=== PATIENT | female | born 1955 | race Asian ===

== ENCOUNTER → 2020-06-11 13:11 | Outpatient (CLI) | payer OTHER, SELFPAY ==
[2020-06-11 14:56] LABS: COVID19 -Nasal RAPID Negative (Negative)
== END ==
PROVIDERS: Visit Provider Physician Assistant
DX: Z20.822 Contact with and (suspected) exposure to COVID-19 (principal)
CPT/HCPCS: 87635

== ENCOUNTER 2020-06-13 08:42 | Day surgery (SDC) | payer OTHER, SELFPAY ==
--- NOTE | 2020-06-13 10:35 | SUR.PREOP ---
Late entry: Pt reported liquid stool early in her arrival, then on further questioning she reported that she had solid stool still coming out. This reported to Dr. Robertson who cancelled her procedure. I informed the pt and told her the [facility] office will be in tough to reschedule.
== END 2020-06-13 08:45 | disposition home or self-care (01) ==
LOC: ENDO 08:44
PROVIDERS: Visit Provider Student in an Organized Health Care Education/Training Program

== ENCOUNTER → 2020-07-02 13:07 | Outpatient (CLI) | payer OTHER, SELFPAY ==
[2020-07-02 15:13] LABS: COVID19 -Nasal RAPID Negative (Negative)
== END ==
PROVIDERS: Visit Provider Physician Assistant
DX: Z01.812 Encounter for preprocedural laboratory examination (principal); Z20.822 Contact with and (suspected) exposure to COVID-19
CPT/HCPCS: 87635

== ENCOUNTER 2020-07-04 12:36 | Day surgery (SDC) | payer OTHER, SELFPAY ==
--- NOTE | 2020-07-04 | PATH_ITS ---
[facility] Accession Number: [id number] . 01 Material submitted: . PART A: colon - ASCENDING COLON POLYP PART B: colon - HEPATIC FLEXURE POLYP . 01 Clinical history: . SDC . 02 Diagnosis: A. Ascending Colon, Polyp, Biopsy: Food material only. No colonic tissue identified. . B. Hepatic Flexure, Polyp, Biopsy: Tubular adenoma. MRV 07/09/2020 1133 Local . 02 Electronically signed: . Jessi Plummer MD, Pathologist NPI- [id number] . 01 Gross description: . Part A: ASCENDING COLON POLYP: Received in formalin are 3 fragment(s) of solomon, soft tissue measuring 0.2 x 0.1 x 0.1 cm to 0.4 x 0.1 x 0.1 cm submitted entirely in 1 cassette(s) Part B: HEPATIC FLEXURE POLYP: Received in formalin are 2 fragment(s) of solomon, soft tissue measuring 0.2 x 0.2 x 0.2 cm to 0.5 x 0.3 x 0.3 cm submitted entirely in 1 cassette(s) /OLVIN 07/05/2020 1834 Local . 02 Pathologist provided ICD-10: D12.3 . 02 CPT . 155724, [id number] Performed at: 01 [facility] [address], [place], [place] [id number] MD Chris Amaral MD Phone: [phone] Performed at: 02 [facility] [address] , [place], [place] [id number] MD Jessi Plummer MD Phone: [phone]
[2020-07-04 13:12] VITALS: BP 181/88; PULSE 64; RESP 16; TEMP 36.2; O2SAT 100; BMI 36.3
[2020-07-04] MEDS: SODIUM CHLORIDE 0.9% 1,000 ML 70 ML IV ×2 (13:36→13:47)
--- NOTE | 2020-07-04 13:56 | PM.HP.1 ---
History of Present Illness History of Present Illness Date Patient Seen: 07/04/20 Time Patient Seen: 13:56 Chief complaint: SDC Narrative: Patient is a very pleasant 64-year-old female who presented for colonoscopy. She does have a personal history of constipation. He is overdue for screening colonoscopy. Patient History Family & Social History Social History: household members spouse Tobacco & Substance use: Smoking Status Never smoker alcohol intake never Substance Use Type does not use Meds Home Medications and Allergies Home Medications Medication Instructions Recorded Confirmed Type atorvastatin 40 mg PO DAILY 06/13/20 07/04/20 History lisinopril 40 mg PO DAILY 06/13/20 07/04/20 History melatonin 3 mg PO BEDTIME PRN 06/13/20 07/04/20 History metformin 500 mg PO BID 06/13/20 07/04/20 History Multiple Vitamin 1 tab PO DAILY 07/04/20 07/04/20 History Allergies Allergy/AdvReac Type Severity Reaction Status Date / Time No Known Drug Allergies Allergy Verified 06/13/20 09:02 Review of Systems Review of Systems ROS: Yes All systems reviewed with the patient and are negative except as otherwise documented Exam Vital Signs (past 8 hours): - 07/04/20 13:12 Temperature 97.2 F L Pulse Rate 64 Respiratory Rate 16 Blood Pressure 181/88 H Pulse Oximetry 100 Oxygen Delivery Method Room Air Const General: cooperative, healthy appearing, comfortable and well developed Nutritional Appearance: average body habitus Orientation: alert, awake and oriented x3 HENMT Head: normocephalic and atraumatic Resp Effort & Inspection: normal respiratory effort and able to speak in complete sentences Auscultation: clear to auscultation bilaterally Cardio Rate: regular rate Rhythm: regular rhythm Heart Sounds: S1 normal and S2 normal GI Palpation: soft Percussion: normal to percussion Auscultation: normal bowel sounds Extrem Right lower extremity: no edema Left lower extremity: no edema Assessment & Plan Assessment & Plan narrative: 1. Constipation 2. Average risk colon cancer screening Colonoscopy today, further recommendations to follow
[2020-07-04] MEDS: MIDAZOLAM 5 MG/5 ML VIAL IV (14:20)
[2020-07-04] MEDS: fentaNYL 250 MCG/5 ML INJ IV (14:20)
[2020-07-04 14:22] VITALS: BP 150/68; PULSE 65; RESP 12; TEMP 36.7; O2SAT 100
[2020-07-04 14:27] VITALS: BP 151/76; PULSE 65; RESP 12; O2SAT 99
--- NOTE | 2020-07-04 14:27 | PM.HP.1 ---
History of Present Illness History of Present Illness Chief complaint: [facility] Narrative: Patient is a very pleasant 64-year-old female who presented for colonoscopy. She does have a personal history of constipation. He is overdue for screening colonoscopy. Patient History Family & Social History Social History: household members spouse Tobacco & Substance use: Smoking Status Never smoker alcohol intake never Substance Use Type does not use Meds Home Medications and Allergies Home Medications Medication Instructions Recorded Confirmed Type atorvastatin 40 mg PO DAILY 06/13/20 07/04/20 History lisinopril 40 mg PO DAILY 06/13/20 07/04/20 History melatonin 3 mg PO BEDTIME PRN 06/13/20 07/04/20 History metformin 500 mg PO BID 06/13/20 07/04/20 History Multiple Vitamin 1 tab PO DAILY 07/04/20 07/04/20 History Allergies Allergy/AdvReac Type Severity Reaction Status Date / Time No Known Drug Allergies Allergy Verified 06/13/20 09:02 Exam Vital Signs (past 8 hours): - 07/04/20 13:12 Temperature 97.2 F L Pulse Rate 64 Respiratory Rate 16 Blood Pressure 181/88 H Pulse Oximetry 100 Oxygen Delivery Method Room Air
--- NOTE | 2020-07-04 14:27 | PM.OP.ENDO ---
Operative Date/Time/Diagnoses Date of procedure: 07/04/20 Time of procedure: 13:59 Procedure Notes Procedure in detail: Surgeon: Priscilla Robertson DO Procedure: Colonoscopy with polypectomy Preoperative diagnosis: 1. Constipation 2. Average risk colon cancer screening Postoperative diagnosis: 1. 4 mm polyp in the ascending colon 2. 5 mm polyp in the hepatic flexure 3. Grade 1 internal hemorrhoids noted on retroflexion 4. Normal appearing terminal ileum, remaining colon was unremarkable Medications: Conscious sedation using 3 mg IV of Midazolam and 75 mcg IV of Fentanyl Preanesthesia Assessment An H and P was performed/updated and the Px?s ASA class is 2. The procedure was discussed in detail with the patient. The potential risks and complications including infection, bleeding, missed lesions, perforation, need for surgery in case of perforation, prolonged hospital stay, and were explained. A brief question and answer period was allotted and once all questions were answered, informed consent was obtained. The patient was brought back to the procedure room and placed on standard monitoring. The patient?s vital signs were monitored continuously throughout the entire procedure. Prior to starting, a timeout was performed to confirm the patient?s identity, allergies, medications, and procedure. Procedure in detail The patient was placed in left lateral decubitus position and once adequate sedation was obtained a RAEGAN was performed. The digital rectal examination did not reveal any palpable lesions. The tip of the colonoscope was placed in the anal canal and advanced without difficulty all the way to the cecum which was identified by the appendiceal orifice and the ileocecal valve. Careful examination of all duncan of the colon was performed with irrigation of any residual stool. Colon was noted to be mildly tortuous. She was noted to have a 4 mm polyp in the ascending colon, removed with cold snare. A 5 mm polyp in the hepatic flexure removed with cold snare. The remaining colon mucosa in terminal ileum appeared unremarkable. Grade 1 internal hemorrhoids were noted on retroflexion. The patient tolerated the procedure well and will be brought back to the recovery area to be discharged once criteria are met. The prep was judged to be good/excellent and adequate to identify polyps less than 5 mm. The withdrawal time was 8min. The total physician intraservice time was 18min. Complications There were no complications and estimated blood loss was minimal. Recommendations: Resume previous diet Continue outPx medications Follow up pathology results Repeat colonoscopy will be determined after pathology results are reviewed An emergency contact number was given to the patient for any complications related to the procedure
[2020-07-04 14:32] VITALS: BP 155/74; PULSE 68; RESP 12; O2SAT 100
[2020-07-04 14:37] VITALS: BP 145/68; PULSE 68; RESP 14; TEMP 37.2; O2SAT 100
[2020-07-04 14:42] VITALS: BP 139/72; PULSE 64; RESP 14; TEMP 37.2; O2SAT 100
--- NOTE | 2020-07-04 15:10 | SUR.PHASEII ---
Pt has met discharge criteria: VSS, denied pain or nausea, able to drink fluids without difficulty. Discharge instructions discussed with pt, all questions answered. Transported via W\C to private vehicle.
== END 2020-07-04 15:05 | disposition home or self-care (01) ==
PROVIDERS: Referring Provider Student in an Organized Health Care Education/Training Program; Visit Provider Student in an Organized Health Care Education/Training Program
PROC: 0DJD8ZZ Inspection of Lower Intestinal Tract, Via Natural or Artificial Opening Endoscopic (ICD-10-PCS; CPT 45378; principal; 2020-07-04 14:00)
DX: Z12.11 Encounter for screening for malignant neoplasm of colon (principal); K64.0 First degree hemorrhoids; D12.3 Benign neoplasm of transverse colon
CPT/HCPCS: 45385; J2250; J3010

== ENCOUNTER → 2022-05-05 13:28 | Outpatient (CLI) | payer MEDICARE, OTHER, SELFPAY ==
[2022-05-05 14:17] LABS: Hematocrit 30.1 % (36-46); Hemoglobin 10.3 g/dL (12.0-16.0); Mean Corpuscular HGB Conc 34.2 % (30-36); Mean Corpuscular Hemoglobin 30.1 PG (26-34); Platelet Count 185 X10^3/uL (150-400); Red Blood Cell Count 3.42 X10^6/uL (4.0-5.2); Red Cell Distribution Width 14.9 % (11.6-14.8); White Blood Cell Count 5.4 X10^3/uL (4.5-11.0)
[2022-05-05 14:29] LABS: Hemoglobin A1C% w Est Avg Glu 6.5 % (4.0-6.0)
[2022-05-05 15:05] LABS: TSH w/ Reflex to FT4 1.01 uIU/mL (0.47-4.68)
[2022-05-05 15:56] LABS: Creatinine Urine Random 103.1 mg/dL
[2022-05-05 16:02] LABS: Microalbumi Creatinin Ratio Ur 37.8 ug/mg CR (<30); Microalbumin Urine Random 3.9 mg/dL (0-1.6)
[2022-05-05 16:11] LABS: Alanine Aminotransferase 37 IU/L (<35); Albumin Globulin Ratio 0.9 (1.0-2.8); Alkaline Phosphatase 80 U/L (38-126); Aspartate Aminotransferase 41 IU/L (14-36); BUN Creatinine Ratio 15.3 (6-22); Bilirubin Total 0.5 mg/dL (0.2-1.3); Blood Urea Nitrogen 15 mg/dL (7-17); Calcium 9.1 mg/dL (8.4-10.2); Carbon Dioxide 25 mmol/L (22-32); Chloride 102 mmol/L (98-107); Estimated Glomerular Filt Rate > 60 mL/min (>60); Globulin 4.3 g/dL (1.7-4.1); Glucose 187 mg/dL (80-110); HEMOLYSIS < 15 (0-50); Potassium 3.6 mmol/L (3.4-5.1); Sodium 138 mmol/L (137-145); Total Protein 8.3 g/dL (6.3-8.2)
[2022-05-06 02:40] LABS: Cholesterol 152 mg/dL (140-199); HDL Cholesterol 49 mg/dL (40-60); LDL Cholesterol Calculated 76 mg/dL (<100); Triglycerides 135 mg/dL (35-150)
[2022-05-07 14:18] LABS: HEMOLYSIS < 15 (0-50); Iron 85 ug/dL (37-170)
[2022-05-07 14:33] LABS: Percent Iron Saturation 33 % (15-50); Total Iron Binding Capacity 255 ug/dL (265-497); Transferrin 199 mg/dL (206-381)
[2022-05-07 15:02] LABS: Ferritin 155 ng/mL (11-264)
== END ==
PROVIDERS: PCP Internal Medicine; Referring Provider Internal Medicine; Visit Provider Internal Medicine
DX: E11.69 Type 2 diabetes mellitus with other specified complication (principal); E78.5 Hyperlipidemia, unspecified; E78.2 Mixed hyperlipidemia; I10 Essential (primary) hypertension; D64.9 Anemia, unspecified
CPT/HCPCS: 36415; 80053; 80061; 82043; 82570; 82728; 83036; 83540; 83550; 84443; 85027

== ENCOUNTER → 2022-06-11 10:58 | Outpatient (CLI) | payer MEDICARE, OTHER, SELFPAY ==
[2022-06-11 12:13] LABS: Hematocrit 31.4 % (36-46); Hemoglobin 10.4 g/dL (12.0-16.0); Mean Corpuscular HGB Conc 33.1 % (30-36); Mean Corpuscular Hemoglobin 30.1 PG (26-34); Mean Corpuscular Volume 90.9 fL (80-100); Platelet Count 248 X10^3/uL (150-400); Red Blood Cell Count 3.46 X10^6/uL (4.0-5.2); Red Cell Distribution Width 14.6 % (11.6-14.8); White Blood Cell Count 5.4 X10^3/uL (4.5-11.0)
[2022-06-11 12:36] LABS: BUN Creatinine Ratio 15.5 (6-22); Blood Urea Nitrogen 15 mg/dL (7-17); Calcium 9.7 mg/dL (8.4-10.2); Carbon Dioxide 27 mmol/L (22-32); Chloride 104 mmol/L (98-107); Estimated Glomerular Filt Rate > 60 mL/min (>60); Glucose 106 mg/dL (80-110); HEMOLYSIS < 15 (0-50); Potassium 4.1 mmol/L (3.4-5.1); Sodium 141 mmol/L (137-145)
[2022-06-11 13:24] LABS: Vitamin B12 811 pg/mL (239-931)
[2022-06-12 07:11] LABS: HBsAg Screen Negative (Negative); Hepatitis A Antibody IgM Negative (Negative); Hepatitis B Core Antibody IgM Negative (Negative); Hepatitis C Antibody 0.1 s/co ratio (0.0-0.9)
== END ==
PROVIDERS: PCP Internal Medicine; Referring Provider Internal Medicine; Visit Provider Internal Medicine
DX: R55 Syncope and collapse (principal); Z20.9 Contact with and (suspected) exposure to unspecified communicable disease; D64.9 Anemia, unspecified
CPT/HCPCS: 36415; 80048; 80074; 82607; 85027; 93005

== ENCOUNTER → 2022-06-23 14:12 | Outpatient (CLI) | payer MEDICARE, OTHER, SELFPAY | PROVIDERS: PCP Internal Medicine; Referring Provider Internal Medicine; Visit Provider Internal Medicine | DX: Z78.0 Asymptomatic menopausal state (principal); M85.89 Other specified disorders of bone density and structure, multiple sites | CPT/HCPCS: 77080 ==

== ENCOUNTER → 2022-10-13 13:35 | Outpatient (CLI) | payer MEDICARE, OTHER, SELFPAY ==
[2022-10-13 14:34] LABS: Hematocrit 33.4 % (36-46); Hemoglobin 11.2 g/dL (12.0-16.0); Mean Corpuscular HGB Conc 33.6 % (30-36); Mean Corpuscular Hemoglobin 31.1 PG (26-34); Mean Corpuscular Volume 92.6 fL (80-100); Platelet Count 251 X10^3/uL (150-400); Red Cell Distribution Width 14.1 % (11.6-14.8); White Blood Cell Count 5.8 X10^3/uL (4.5-11.0)
[2022-10-13 15:11] LABS: Alanine Aminotransferase 35 IU/L (<35); Albumin 4.3 g/dL (3.5-5.0); Albumin Globulin Ratio 1.1 (1.0-2.8); Alkaline Phosphatase 80 U/L (38-126); Aspartate Aminotransferase 29 IU/L (14-36); BUN Creatinine Ratio 15.3 (6-22); Bilirubin Total 0.6 mg/dL (0.2-1.3); Blood Urea Nitrogen 20 mg/dL (7-17); Calcium 9.7 mg/dL (8.4-10.2); Carbon Dioxide 28 mmol/L (22-32); Chloride 103 mmol/L (98-107); Estimated Glomerular Filt Rate 45 mL/min (>60); Globulin 3.8 g/dL (1.7-4.1); Glucose 155 mg/dL (80-110); HEMOLYSIS < 15 (0-50); Potassium 4.1 mmol/L (3.4-5.1); Sodium 140 mmol/L (137-145); Total Protein 8.1 g/dL (6.3-8.2)
[2022-10-14 03:10] LABS: x Labcorp Estim. Avg Glu (eAG) 143 mg/dL (.); x Labcorp Hemoglobin A1c 6.6 % (4.8-5.6)
== END ==
PROVIDERS: PCP Internal Medicine; Referring Provider Internal Medicine; Visit Provider Internal Medicine
DX: D64.9 Anemia, unspecified (principal); R55 Syncope and collapse
CPT/HCPCS: 36415; 80053; 83036; 85027

== ENCOUNTER 2023-05-03 13:32 | Emergency (ER) | payer MEDICARE, OTHER, SELFPAY ==
[2023-05-03] VITALS (11 sets, daily range): BP systolic 97–130; BP diastolic 50–60; PULSE 56–74; RESP 13–20; TEMP 36.2; O2SAT 93–100; BMI 25.2
--- NOTE | 2023-05-03 13:55 | DI.RAD.S_ITS ---
PROCEDURE: XR CHEST 1V INDICATIONS: chest pain TECHNIQUE: One view of the chest was acquired. COMPARISON: None. FINDINGS: Surgical changes and devices: None. Lungs and pleura: Lungs are clear. No pleural effusions or pneumothorax. Mediastinum: Mediastinal contours appear normal. Heart size is normal. Bones and chest wall: No suspicious bony lesions. Overlying soft tissues appear unremarkable. IMPRESSION: No acute cardiopulmonary abnormality is seen. Dictated by: González Murray M.D. on 05/03/2023 at 13:18 Approved by: González Murray M.D. on 05/03/2023 at 13:23
[2023-05-03 14:11] LABS: Prothrombin Time 11.6 SECONDS (9.4-12.5)
[2023-05-03 14:14] LABS: PTT Partial Thromboplastin Tim 27 SECONDS (25.1-36.5)
[2023-05-03 14:15] LABS: Add Manual Diff / Slide Review NO; Basophils Absolute Auto 0 /uL (0-100); Basophils Percent Auto 0.5 % (0-2); Eosinophils Absolute Auto 100 /uL (0-450); Eosinophils Percent Auto 2.3 % (2-4); Hematocrit 27.4 % (36-46); Hemoglobin 9.5 g/dL (12.0-16.0); Lymphocytes Absolute Auto 1800 /uL (1100-4500); Lymphocytes Percent Auto 30.8 % (25-40); Mean Corpuscular HGB Conc 34.9 % (30-36); Mean Corpuscular Hemoglobin 31.7 PG (26-34); Mean Corpuscular Volume 90.9 fL (80-100); Monocytes Absolute Auto 400 /uL (0-900); Monocytes Percent Auto 7.3 % (3-14); Neutrophils Absolute Auto 3400 /uL (1500-7000); Neutrophils Percent Auto 59.1 % (50-75); Platelet Count 249 X10^3/uL (150-400); Red Blood Cell Count 3.01 X10^6/uL (4.0-5.2); White Blood Cell Count 5.7 X10^3/uL (4.5-11.0)
[2023-05-03] MEDS: SODIUM CHLORIDE 0.9% 1,000 ML 1000 ML IV (14:19)
[2023-05-03 14:24] LABS: Alanine Aminotransferase 29 IU/L (<35); Albumin 3.4 g/dL (3.5-5.0); Alkaline Phosphatase 74 U/L (38-126); Aspartate Aminotransferase 34 IU/L (14-36); BUN Creatinine Ratio 13.7 (6-22); Bilirubin Total 0.6 mg/dL (0.2-1.3); Blood Urea Nitrogen 14 mg/dL (7-17); Carbon Dioxide 25 mmol/L (22-32); Chloride 106 mmol/L (98-107); Creatine Kinase 25 U/L (30-135); Estimated Glomerular Filt Rate > 60 mL/min (>60); Globulin 3.3 g/dL (1.7-4.1); Glucose 155 mg/dL (80-110); HEMOLYSIS 20 (0-50); Lipase 93 U/L (23-300); Magnesium 1.6 mg/dL (1.6-2.3); Potassium 3.8 mmol/L (3.4-5.1); Sodium 134 mmol/L (137-145); Total Protein 6.7 g/dL (6.3-8.2)
--- NOTE | 2023-05-03 14:31 | ED_ITS ---
HPI - Syncope General Chief Complaint: Weakness Stated Complaint: Syncope/weakness Time Seen by Provider: 05/03/23 14:11 Source: patient and EMS Mode of arrival: EMS Limitations: no limitations History of Present Illness HPI narrative: This is a 67-year-old female with history of hypertension, dyslipidemia diabetes who presents with complaint of syncope or near syncopal episode today. Has been states had recently gotten up had walked into the kitchen she said she does not feel well and she could not see right and that her vision was turning black. States he held her up she got very sweaty he helped her down to the ground. He states he never lost consciousness but seemed woozy. After about 10 minute she seemed improved they stood her back up and she would some her symptoms again and sat her back in his chair. Patient never had loss of consciousness no difficulty with speech no numbness, tingling weakness or facial droop. Patient has been both notes she has not had anything to eat since last night. She has had prior syncopal episodes in the past. None recently. No fevers or chills. No chest pain, no shortness of breath. She has not had any nausea or vomiting. She is been mildly constipated but had a bowel movement yesterday. No black or bloody stools. No dysuria urgency or frequency. No urinary incontinence. No new swelling of extremities. Patient he is on lisinopril, amlodipine, 80 mg atorvastatin, metformin. Had prior cholecystectomy remotely. No known drug allergies. No tobacco, alcohol or illicit. Primary care is Dr. Melendez. Patient has been feeling improved here in the department but has not been upper walking. She has not yet had anything to eat today. Related Data Home Medications Medication Instructions Recorded Confirmed melatonin 3 mg tablet 3 mg PO BEDTIME PRN Sleep 06/13/20 10/15/22 multivitamin 1 tab PO DAILY 11/27/21 10/15/22 Previous Rx's Medication Instructions Recorded blood sugar diagnostic (FreeStyle #100 ea 11/28/21 Lite Strips) lancets 28 gauge (FreeStyle #100 ea 11/28/21 Lancets) amlodipine 10 mg tablet 10 mg PO DAILY #90 tabs 10/15/22 atorvastatin 80 mg tablet 80 mg PO DAILY #90 tabs 10/15/22 lisinopril 40 mg tablet 40 mg PO DAILY #90 tabs 10/15/22 metformin 500 mg tablet 500 mg PO BID #180 tabs 10/15/22 Allergies Allergy/AdvReac Type Severity Reaction Status Date / Time No Known Drug Allergies Allergy Verified 10/15/22 10:21 Review of Systems Review of Systems ROS Unobtainable: All systems reviewed & are unremarkable except as noted in HPI and below Patient History Medical History Slow transit constipation Osteopenia Anemia Syncope Iliotibial band syndrome of both sides Cervicalgia History of colonic polyps Mixed hyperlipidemia Essential hypertension DM type 2 with diabetic dyslipidemia Social History household members: spouse Smoking Status: Never smoker alcohol intake: never Smoking Status: Never smoker Substance Use Type: does not use Exam Narrative Exam Narrative: GENERAL: Alert and oriented x three, well-appearing elderly female in mild distress. HEENT: Head normocephalic, atraumatic, EOMI, pupils reactive, face symmetric, moist mucous membranes NECK: Supple, full range of motion CARDIOVASCULAR: Regular rate and rhythm without murmurs, rubs or gallops. No JVD. No edema bilateral lower extremities. RESPIRATORY: Breath sounds equal bilaterally, no wheezes rales or rhonchi. No tachypnea or accessory muscle use ABDOMEN: Soft, nontender. Normoactive bowel sounds all 4 quadrants. No guarding or rebound, rigidity, no mass : No CVA tenderness EXTREMITIES: Normal range of motion, no clubbing or edema. Neurovascularly intact NEUROLOGICAL: Cranial nerves II through XII grossly intact. Moving all extremities SKIN: Warm, dry, no petechiae, no rashes or lesions. Initial Vital Signs Initial Vital Signs: Vital Signs Pulse Rate 62 05/03/23 13:35 Pulse Oximetry 93 05/03/23 13:35 Course Orders Ordered: Discontinued Medications Sodium Chloride (Normal Saline 0.9%) 1,000 mls @ 1,000 mls/hr IV BOLUS ONE Stop: 05/03/23 15:11 Last Infusion: 05/03/23 15:14 Dose: Infused Documented By: Admin: 05/03/23 14:19 Dose: 1,000 mls/hr Documented By: KAMAR Vital Signs Vital signs: Vital Signs - 8 hr 05/03/23 13:35 05/03/23 13:38 05/03/23 13:38 Temperature Pulse Rate 62 65 Respiratory Rate Blood Pressure 97/53 L Pulse Oximetry 93 98 Oxygen Delivery Method 05/03/23 13:40 05/03/23 13:41 05/03/23 13:41 Temperature 97.1 F L Pulse Rate 62 61 Respiratory Rate 18 Blood Pressure 97/53 L 107/57 L Pulse Oximetry 99 99 Oxygen Delivery Method Room Air 05/03/23 13:51 05/03/23 13:51 05/03/23 14:00 Temperature Pulse Rate 65 Respiratory Rate 20 Blood Pressure 130/58 L 112/57 L Pulse Oximetry 96 Oxygen Delivery Method 05/03/23 14:00 05/03/23 14:10 05/03/23 14:10 Temperature Pulse Rate 57 L 56 L Respiratory Rate 13 17 Blood Pressure 113/58 L Pulse Oximetry 100 100 Oxygen Delivery Method Room Air 05/03/23 14:20 05/03/23 14:20 05/03/23 14:30 Temperature Pulse Rate 59 L 63 Respiratory Rate 14 17 Blood Pressure 101/50 L Pulse Oximetry 98 99 Oxygen Delivery Method Room Air 05/03/23 14:30 Temperature Pulse Rate Respiratory Rate Blood Pressure 115/56 L Pulse Oximetry Oxygen Delivery Method MDM - Syncope Lab Data 05/03/23 13:44 05/03/23 13:44 Labs: Lab Results 05/03/23 Range/Units 13:44 WBC 5.7 (4.5-11.0) X10^3/uL RBC 3.01 L (4.0-5.2) X10^6/uL Hgb 9.5 L (12.0-16.0) g/dL Hct 27.4 L (36-46) % MCV 90.9 (80-100) fL MCH 31.7 (26-34) PG MCHC 34.9 (30-36) % RDW 13.0 (11.6-14.8) % Plt Count 249 (150-400) X10^3/uL Neut % (Auto) 59.1 (50-75) % Lymph % (Auto) 30.8 (25-40) % [place] % (Auto) 7.3 (3-14) % Eos % (Auto) 2.3 (2-4) % Baso % (Auto) 0.5 (0-2) % Neut # (Auto) 3400 (7220-6686) /uL Lymph # (Auto) 1800 (1458-3198) /uL [place] # (Auto) 400 (0-900) /uL Eos # (Auto) 100 (0-450) /uL Baso # (Auto) 0 (0-100) /uL PT 11.6 (9.4-12.5) SECONDS INR 1.0 (0.9-1.3) APTT 27 (25.1-36.5) SECONDS Sodium 134 L (137-145) mmol/L Potassium 3.8 (3.4-5.1) mmol/L Chloride 106 (98-107) mmol/L Carbon Dioxide 25 (22-32) mmol/L BUN 14 (7-17) mg/dL Creatinine 1.02 (0.52-1.04) mg/dL Estimated GFR > 60 (>60) mL/min BUN/Creatinine Ratio 13.7 (6-22) Glucose 155 H (80-110) mg/dL Calcium 9.0 (8.4-10.2) mg/dL Magnesium 1.6 (1.6-2.3) mg/dL Total Bilirubin 0.6 (0.2-1.3) mg/dL AST 34 (14-36) IU/L ALT 29 (<35) IU/L Alkaline Phosphatase 74 (38-126) U/L Total Creatine Kinase 25 L (30-135) U/L Troponin I < 0.012 (0.01-0.034) ng/mL Total Protein 6.7 (6.3-8.2) g/dL Albumin 3.4 L (3.5-5.0) g/dL Globulin 3.3 (1.7-4.1) g/dL Albumin/Globulin Ratio 1.0 (1.0-2.8) Lipase 93 (23-300) U/L Imaging Data Chest x-ray: Radiologist's Impression: Anuja Arnold??67??F??1955 ? Allergy/Adv: No Known Drug Allergies (More??) Close Chest X-Ray (Signed) González Murray - 05/03/23 DEXA Result 06/23/22 Bone Densitometry 06/23/22 Telemetry Strips 07/04/20 Launch?[address] [address] XRay Report Signed Patient: Anuja Arnold MR#: [id number] : 1955 Acct:[id number] Age/Sex: 67 / F Date of Service: 05/03/23 Loc: ED Accession Number: [id number] Procedure: XR chest 1V Ordering Provider: Irish Vallejo D.O. PROCEDURE: XR CHEST 1V INDICATIONS: chest pain TECHNIQUE: One view of the chest was acquired. COMPARISON: None. FINDINGS: Surgical changes and devices: None. Lungs and pleura: Lungs are clear. No pleural effusions or pneumothorax. Mediastinum: Mediastinal contours appear normal. Heart size is normal. Bones and chest wall: No suspicious bony lesions. Overlying soft tissues appear unremarkable. IMPRESSION: No acute cardiopulmonary abnormality is seen. Dictated by: González Murray M.D. on 05/03/2023 at 13:18 Approved by: González Murray M.D. on 05/03/2023 at 13:23 ECG Data Attestation: I personally reviewed and interpreted this ECG as follows: Prior ECG tracings: available for review Interpretation: Sinus rhythm with sinus arrhythmia, rate of 61 NE 158, QRS is 78 QTC of 448. Patient does not appear to have more of a sinus arrhythmia. No AV block appreciated. No acute ST changes noted patient has prior for comparison with no change. MDM Narrative Medical decision making narrative: 67-year-old female with complaint of near-syncope, patient had 2 episodes almost back to back. Patient has had similar episodes in the past she would not eaten or drank anything so far today. Patient is hypotensive initially on arrival and has been had tried to check her blood pressure but was too low he did give her some candy for possible hypoglycemia. Patient's workup CBC shows hemoglobin 9.5 was 11 on 10/13/2021 has been in the 10 range. Crit is 27. White count 5.7 platelets are 249, creatinine is 1.012 was 1.31 on 10/13 normal glucose of 155 BUN 14 sodium and potassium are appropriate 134 and 3.8 LFTs are negative CK is 25 with a negative troponin. Chest x-ray shows no acute change. EKG has some sinus arrhythmia but no obvious AV block or ST changes appears similar to prior. Patient was hypotensive initially blood pressures improved with fluids. Patient had not eaten anything today although blood glucose was appropriate patient did have some food and water to drink. Patient had ambulation trial with no issue. Patient is felt safe for disposition home. Discharge Plan Departure Patient Disposition: Home Clinical Impression: Near syncope Instructions: DI for Syncope in Adults (Fainting) Activity Restrictions/Additional Instructions: Follow-up with your physician for recheck. Please call to set up an appointment. Monitor your blood pressure at home. If your blood pressure is running low chronically they may need to decrease your blood pressure medication. Make sure you are eating and drinking regularly. Please return for new or worsening symptoms, severe headaches, new chest pain, shortness of breath, read recurrent episodes of passing out or lightheadedness, sweatiness, nausea or vomiting, black or bloody stools, urinary incontinence, new swelling in extremities or other new or concerning changes. Prescriptions: No Action (DME) lancets [FreeStyle Lancets] 28 gauge misc See Rx Instructions .Route Qty: 100 3RF Rx Instructions: As directed;1 lancet to check blood glucose daily (DME) FreeStyle Lite Strips Strip See Rx Instructions .Route Qty: 100 3RF Rx Instructions: As directed;1 test strip to check blood glucose daily multivitamin Tablet 1 tab PO DAILY metformin 500 mg tablet 500 mg PO BID Qty: 180 3RF lisinopril 40 mg tablet 40 mg PO DAILY Qty: 90 3RF atorvastatin 80 mg tablet 80 mg PO DAILY Qty: 90 3RF amlodipine 10 mg tablet 10 mg PO DAILY Qty: 90 3RF melatonin 3 mg Tablet 3 mg PO BEDTIME PRN (Reason: Sleep) Referrals: Ricky Melendez MD [Primary Care Provider] - Stand Alone Forms: Patient Portal/API
[2023-05-03 14:35] LABS: Troponin I < 0.012 ng/mL (0.01-0.034)
--- NOTE | 2023-05-03 15:16 | PC.NURSE ---
CELLAR WORKER note: provider requested pt. have a snack or warm water and then ambulation trial. pt. refused snack options that were provided, but accepted warm water to drink. I left crackers, applesauce and warm water at pt. bedside table, i offered broth as another option as pt. requested hot food. this robotics engineer informed pt. that dinner service does not start until 1700. ISMAEL Valdez notified, then i called inpatient orders and left a vm.
--- NOTE | 2023-05-03 15:26 | PC.NURSE ---
This CHARGE MACHINE OPERATOR performed ambulation trial with pt. pt walked from bed and down outside of room with myself walking beside before returning to the room and bed.
== END 2023-05-03 15:50 | disposition home or self-care (01) ==
PROVIDERS: Emergency Provider Emergency Medicine; PCP Internal Medicine
DX: R55 Syncope and collapse (principal)
CPT/HCPCS: 36415; 71045; 80053; 82550; 83690; 83735; 84484; 85025; 85610; 85730; 93005; 93010; 99284

== ENCOUNTER → 2023-06-15 15:00 | Outpatient (CLI) | payer MEDICARE, OTHER, SELFPAY ==
[2023-06-15 17:16] LABS: Hematocrit 32.4 % (36-46); Hemoglobin 11.1 g/dL (12.0-16.0); Mean Corpuscular HGB Conc 34.2 % (30-36); Mean Corpuscular Hemoglobin 31.1 PG (26-34); Mean Corpuscular Volume 90.8 fL (80-100); Platelet Count 229 X10^3/uL (150-400); Red Blood Cell Count 3.57 X10^6/uL (4.0-5.2); Red Cell Distribution Width 14.2 % (11.6-14.8); White Blood Cell Count 4.9 X10^3/uL (4.5-11.0)
[2023-06-15 17:32] LABS: BUN Creatinine Ratio 11.6 (6-22); Blood Urea Nitrogen 13 mg/dL (7-17); Carbon Dioxide 26 mmol/L (22-32); Chloride 102 mmol/L (98-107); Cholesterol 137 mg/dL (140-199); Estimated Glomerular Filt Rate 54 mL/min (>60); Glucose 130 mg/dL (80-110); HDL Cholesterol 56 mg/dL (40-60); HEMOLYSIS < 15 (0-50); LDL Cholesterol Calculated 61 mg/dL (<100); Potassium 3.9 mmol/L (3.4-5.1); Sodium 136 mmol/L (137-145); Triglycerides 101 mg/dL (35-150)
[2023-06-15 18:06] LABS: Ferritin 37 ng/mL (11-264)
[2023-06-15 19:49] LABS: Creatinine Urine Random 211.5 mg/dL
[2023-06-15 19:53] LABS: Microalbumin Urine Random 7.2 mg/dL (0-1.6)
[2023-06-15 23:10] LABS: HEMOLYSIS < 15 (0-50); Transferrin 232 mg/dL (206-381)
[2023-06-15 23:21] LABS: Iron 92 ug/dL (37-170)
[2023-06-15 23:32] LABS: Percent Iron Saturation 34 % (15-50); Total Iron Binding Capacity 273 ug/dL (265-497)
[2023-06-16 11:10] LABS: Hemoglobin A1C% w Est Avg Glu 6.3 % (4.0-6.0)
== END ==
PROVIDERS: PCP Internal Medicine; Referring Provider Internal Medicine; Visit Provider Internal Medicine
DX: E11.69 Type 2 diabetes mellitus with other specified complication (principal); D64.9 Anemia, unspecified; I10 Essential (primary) hypertension; E78.5 Hyperlipidemia, unspecified; E78.2 Mixed hyperlipidemia
CPT/HCPCS: 36415; 80048; 80061; 82043; 82570; 82728; 83036; 83540; 83550; 85027

== ENCOUNTER → 2023-09-07 14:57 | Outpatient (CLI) | payer MEDICARE, OTHER, SELFPAY ==
--- NOTE | 2023-09-07 | DI.MG.S_ITS ---
BILATERAL DIGITAL SCREENING MAMMOGRAM 3D/2D WITH CAD: 09/07/2023 CLINICAL: Routine screening. Comparison is made to exam dated: 05/16/2020 mammogram - [facility]. Both breasts are heterogeneously dense, which may obscure small masses (category c / 51-75% glandular tissue). Current study was also evaluated with a Computer Aided Detection (CAD) system. No significant masses, calcifications, or other findings are seen in either breast. There has been no significant interval change. IMPRESSION: NEGATIVE There is no mammographic evidence of malignancy. A 1 year screening mammogram is recommended. Based on the Tyrer Cuzick model (a risk assessment model) the patient's lifetime risk is 9.3% and her 10 year risk is 4.7%. According to the ACR, ACS, and NCCN guidelines, an annual breast MRI exam along with mammogram is recommended if the patient's lifetime risk is 20% or greater. This exam was interpreted at Station ID: [id number]. NOTE: For mammograms, a report in lay terms will be sent to the patient. Approximately 15% of breast malignancies will not be visualized mammographically. In the management of a palpable breast mass, a negative mammogram must not discourage biopsy of a clinically suspicious lesion. Electronically Signed By: Felicia leahy/rosa m:09/08/2023 14:07:53 letter sent: Normal Exam ACR BI-RADS Category 1: Negative 3341F
[2023-09-07 15:39] LABS: Add Manual Diff / Slide Review NO; Basophils Absolute Auto 0 /uL (0-100); Basophils Percent Auto 0.8 % (0-2); Eosinophils Absolute Auto 100 /uL (0-450); Eosinophils Percent Auto 1.5 % (2-4); Hemoglobin 11.3 g/dL (12.0-16.0); Lymphocytes Absolute Auto 2000 /uL (1100-4500); Lymphocytes Percent Auto 39.6 % (25-40); Mean Corpuscular HGB Conc 34.1 % (30-36); Mean Corpuscular Hemoglobin 31.5 PG (26-34); Mean Corpuscular Volume 92.4 fL (80-100); Monocytes Absolute Auto 300 /uL (0-900); Monocytes Percent Auto 6.2 % (3-14); Neutrophils Absolute Auto 2700 /uL (1500-7000); Neutrophils Percent Auto 51.9 % (50-75); Platelet Count 227 X10^3/uL (150-400); Red Blood Cell Count 3.58 X10^6/uL (4.0-5.2); Red Cell Distribution Width 13.5 % (11.6-14.8); White Blood Cell Count 5.2 X10^3/uL (4.5-11.0)
[2023-09-07 15:58] LABS: HEMOLYSIS < 15 (0-50); Iron 73 ug/dL (37-170)
[2023-09-07 16:11] LABS: Percent Iron Saturation 30 % (15-50); Total Iron Binding Capacity 247 ug/dL (265-497); Transferrin 200 mg/dL (206-381)
[2023-09-07 16:36] LABS: Ferritin 48 ng/mL (11-264)
== END ==
PROVIDERS: PCP Internal Medicine; Referring Provider Internal Medicine; Visit Provider Internal Medicine
DX: Z12.31 Encounter for screening mammogram for malignant neoplasm of breast (principal); D64.9 Anemia, unspecified; R92.333 Mammographic heterogeneous density, bilateral breasts
CPT/HCPCS: 36415; 77063; 77067; 82728; 83540; 83550; 85025

== ENCOUNTER → 2023-11-23 14:29 | Outpatient (CLI) | payer MEDICARE, OTHER, SELFPAY ==
[2023-11-23 14:59] LABS: Hematocrit 31.7 % (36-46); Hemoglobin 10.8 g/dL (12.0-16.0); Mean Corpuscular HGB Conc 34.1 % (30-36); Mean Corpuscular Hemoglobin 31.5 PG (26-34); Mean Corpuscular Volume 92.5 fL (80-100); Platelet Count 220 X10^3/uL (150-400); Red Blood Cell Count 3.42 X10^6/uL (4.0-5.2); Red Cell Distribution Width 14.2 % (11.6-14.8); White Blood Cell Count 4.7 X10^3/uL (4.5-11.0)
[2023-11-23 15:05] LABS: Hemoglobin A1C% w Est Avg Glu 6.2 % (4.0-6.0)
[2023-11-23 15:32] LABS: Alanine Aminotransferase 28 IU/L (<35); Albumin 3.9 g/dL (3.5-5.0); Albumin Globulin Ratio 1.1 (1.0-2.8); Alkaline Phosphatase 82 U/L (38-126); Aspartate Aminotransferase 29 IU/L (14-36); BUN Creatinine Ratio 13.9 (6-22); Bilirubin Total 0.4 mg/dL (0.2-1.3); Blood Urea Nitrogen 15 mg/dL (7-17); Calcium 9.6 mg/dL (8.4-10.2); Carbon Dioxide 27 mmol/L (22-32); Chloride 108 mmol/L (98-107); Cholesterol 177 mg/dL (140-199); Estimated Glomerular Filt Rate 56 mL/min (>60); Globulin 3.4 g/dL (1.7-4.1); Glucose 124 mg/dL (80-110); HDL Cholesterol 74 mg/dL (40-60); HEMOLYSIS < 15 (0-50); Iron 66 ug/dL (37-170); LDL Cholesterol Calculated 77 mg/dL (<100); Potassium 3.7 mmol/L (3.4-5.1); Sodium 141 mmol/L (137-145); Total Protein 7.3 g/dL (6.3-8.2); Triglycerides 130 mg/dL (35-150)
[2023-11-23 15:41] LABS: Percent Iron Saturation 25 % (15-50); Total Iron Binding Capacity 264 ug/dL (265-497)
[2023-11-23 15:42] LABS: Transferrin 211 mg/dL (206-381)
[2023-11-23 16:05] LABS: TSH w/ Reflex to FT4 0.65 uIU/mL (0.47-4.68)
[2023-11-23 16:10] LABS: Ferritin 29 ng/mL (11-264)
[2023-11-23 16:33] LABS: Creatinine Urine Random 168.17 mg/dL
[2023-11-23 16:38] LABS: Microalbumin Urine Random 5.9 mg/dL (0-1.6)
== END ==
LOC: LAB 14:31
PROVIDERS: PCP Internal Medicine; Referring Provider Internal Medicine; Visit Provider Internal Medicine
DX: R55 Syncope and collapse (principal); E11.69 Type 2 diabetes mellitus with other specified complication; E78.5 Hyperlipidemia, unspecified; D64.9 Anemia, unspecified
CPT/HCPCS: 36415; 80053; 80061; 82043; 82570; 82728; 83036; 83540; 83550; 84443; 85027

== ENCOUNTER → 2023-11-27 09:42 | Outpatient (CLI) | payer MEDICARE, OTHER, SELFPAY ==
--- NOTE | 2023-11-27 09:44 | DI.CT.S_ITS ---
PROCEDURE: CT HEAD/BRAIN WO CON INDICATIONS: Syncope and collapse TECHNIQUE: Noncontrast 4.5 mm thick angled axial sections acquired from the foramen magnum to the vertex, with coronal and sagittal reformats. For radiation dose reduction, the following was used: automated exposure control, adjustment of mA and/or kV according to patient size. COMPARISON: None. FINDINGS: Image quality: Diagnostic. CSF spaces: Basal cisterns are patent. No extra-axial fluid collections. Ventricles are normal in size and shape. Brain: No midline shift. No intracranial masses or hemorrhage. Romano-white matter interface is normal. Along the anterior falx, there is a partially calcified lesion with rounded margins and no significant mass effect measuring 0.8 x 1.1 x 1.3 cm Skull and face: Calvarium and visualized facial bones are intact, without suspicious lesions. Sinuses: Visualized sinuses and mastoids are clear. IMPRESSION: No acute intracranial pathology. Suspected small meningioma along the anterior falx without underlying mass effect. Dictated by: Varinder Finnegan M.D. on 11/27/2023 at 9:59 Approved by: Varinder Finnegan M.D. on 11/27/2023 at 10:04
== END ==
LOC: CT 09:43
PROVIDERS: PCP Internal Medicine; Referring Provider Internal Medicine; Visit Provider Internal Medicine
DX: R55 Syncope and collapse (principal); G31.84 Mild cognitive impairment of uncertain or unknown etiology
CPT/HCPCS: 70450

== ENCOUNTER → 2023-12-14 09:44 | Outpatient (CLI) | payer MEDICARE, OTHER, SELFPAY | LOC: CAR 09:45 | PROVIDERS: PCP Internal Medicine; Referring Provider Internal Medicine; Visit Provider Internal Medicine | DX: R55 Syncope and collapse (principal) | CPT/HCPCS: 93246 ==

== ENCOUNTER → 2024-07-11 11:28 | Outpatient (CLI) | payer MEDICARE, OTHER, SELFPAY ==
[2024-07-11 12:21] LABS: Hematocrit 31.6 % (36-46); Hemoglobin 10.5 g/dL (12.0-16.0); Mean Corpuscular HGB Conc 33.2 % (30-36); Mean Corpuscular Hemoglobin 29.8 PG (26-34); Mean Corpuscular Volume 89.8 fL (80-100); Platelet Count 233 X10^3/uL (150-400); Red Blood Cell Count 3.52 X10^6/uL (4.0-5.2); Red Cell Distribution Width 14.4 % (11.6-14.8); White Blood Cell Count 5.3 X10^3/uL (4.5-11.0)
[2024-07-11 12:38] LABS: Hemoglobin A1C% w Est Avg Glu 6.4 % (4.0-6.0)
[2024-07-11 12:53] LABS: HEMOLYSIS < 15 (0-50); Iron 56 ug/dL (37-170)
[2024-07-11 12:56] LABS: Aspartate Aminotransferase 35 IU/L (14-36); Blood Urea Nitrogen 20 mg/dL (7-17); Calcium 9.6 mg/dL (8.4-10.2); Carbon Dioxide 26 mmol/L (22-32); Chloride 105 mmol/L (98-107); Cholesterol 153 mg/dL (140-199); Estimated Glomerular Filt Rate 54 mL/min (>60); Glucose 135 mg/dL (80-110); HDL Cholesterol 76 mg/dL (40-60); HEMOLYSIS < 15 (0-50); LDL Cholesterol Calculated 67 mg/dL (<100); Potassium 4.9 mmol/L (3.4-5.1); Sodium 137 mmol/L (137-145); Triglycerides 52 mg/dL (35-150)
[2024-07-11 13:08] LABS: Percent Iron Saturation 22 % (15-50); Total Iron Binding Capacity 259 ug/dL (265-497); Transferrin 231 mg/dL (206-381)
[2024-07-11 13:26] LABS: Ferritin 16 ng/mL (11-264)
[2024-07-11 14:45] LABS: Microalbumin Urine Random 2.6 mg/dL (0-1.6)
[2024-07-11 14:47] LABS: Creatinine Urine Random 120.62 mg/dL
== END ==
PROVIDERS: PCP Internal Medicine; Referring Provider Internal Medicine; Visit Provider Internal Medicine
DX: E11.69 Type 2 diabetes mellitus with other specified complication (principal); E78.5 Hyperlipidemia, unspecified; E78.2 Mixed hyperlipidemia; D64.9 Anemia, unspecified
CPT/HCPCS: 36415; 80048; 80061; 82043; 82570; 82728; 83036; 83540; 83550; 84450; 85027

== ENCOUNTER → 2025-04-13 16:37 | Outpatient (CLI) | payer MEDICARE, OTHER, SELFPAY ==
--- NOTE | 2025-04-13 16:38 | DI.RAD.S_ITS ---
PROCEDURE: XR HIP W PEL IF DONE RT 2V INDICATIONS: right hip pain TECHNIQUE: AP pelvis with lateral view(s) of the right hip(s). COMPARISON: None. FINDINGS: Bones: No fractures or dislocations. Mild bilateral hip joint degeneration. Degenerative changes of the visualized lower lumbar spine and pubic symphysis. Pelvic ring appears intact. No suspicious bony lesions. Soft tissues: The visualized bowel gas pattern is normal. No suspicious soft tissue calcifications. IMPRESSION: Mild bilateral hip joint degeneration. Dictated by: Myke Jasso M.D. on 04/15/2025 at 13:44 Approved by: Myke Jasso M.D. on 04/15/2025 at 13:44
== END ==
PROVIDERS: PCP Internal Medicine; Referring Provider Internal Medicine; Visit Provider Internal Medicine
DX: S76.011A Strain of muscle, fascia and tendon of right hip, initial encounter (principal); M16.0 Bilateral primary osteoarthritis of hip; X58.XXXA Exposure to other specified factors, initial encounter
CPT/HCPCS: 73502